=== PATIENT | male | born 1960 | race Caucasian/White ===

== ENCOUNTER 2018-04-20 10:01 | Day surgery (SDC) | payer BC ==
[~2018-04-20] VITALS: Ht 170.2 cm; Wt 100.2 kg
[2018-04-20 10:20] VITALS: Ht 170.2 cm; Wt 100.2 kg
[2018-04-20 11:24] VITALS: BP 131/80; PULSE 56; RESP 16
[2018-04-20 12:42] VITALS: BP 131/79; PULSE 53; RESP 18
[2018-04-20] MEDS ORDERED: MIDAZOLAM 1 MG/ML 2 ML INJ ONE ×2 (12:44)
[2018-04-20] MEDS ORDERED: FENTAnyl 50 MCG/ML VIAL ONE (12:44)
== END 2018-04-20 15:09 | disposition home or self-care (01) ==
LOC: GIL 10:01
PROVIDERS: ATTEND Internal Medicine Gastroenterology
DX: Z12.11 Encounter for screening for malignant neoplasm of colon (principal); D12.5 Benign neoplasm of sigmoid colon; K64.8 Other hemorrhoids
CPT/HCPCS: 45380; 88305; J2250; J3010; Z7610

== ENCOUNTER 2018-08-22 06:28 | Inpatient (IN) | payer BC ==
[2018-08-19 14:01] VITALS: BMI 34.5
[2018-08-22] VITALS (11 sets, daily range): BP systolic 113–179; BP diastolic 78–103; PULSE 58–74; RESP 16–25; Ht 170.2 cm; Wt 99.7 kg
[~2018-08-22] VITALS: Ht 170.2 cm; Wt 99.7 kg
[2018-08-22] MEDS ORDERED: SOD CHLORIDE 0.9% 1,000 ML IV SCH (07:00)
[2018-08-22] MEDS ORDERED: CEFAZOLIN 2 GM/50 ML (PMX) 50 ML IVPB ONE (07:00)
--- NOTE | 2018-08-22 09:16 | PREAC ---
Date/Time of Note Date/Time of Note DATE: 08/22/18 TIME: 09:15 Anesthesia Eval and Record Evaluation Time Pre-Procedure Interview DATE: 08/22/18 TIME: 09:15 Age 58 Sex male NPO: 8 hrs Preoperative diagnosis abdominal wall defect Planned procedure abdominal open component separation, ventral hernia repair Past Medical History Past Medical History: Includes GI: Obesity Surgery & Anesthesia Issues No known issue Meds Anticoagulation: No Beta Jimmy within 24 hr: No Reason Beta Jimmy not given: Pt. not on B-Jimmy Discontinued Reported Medications [None] No Conflict Check 04/20/18 Current Medications Sodium Chloride 1,000 ml @ 75 mls/hr [id number] IV Last administered on 08/22/18at 07:50; Admin Dose 75 MLS/HR; Start 08/22/18 at 07:00 Meds reviewed: Yes Allergies Coded Allergies: No Known Allergy (Unverified , 08/22/18) Allergies Reviewed: Yes Labs/Studies Labs Reviewed: Reviewed by anesthesiologist test: N/A Studies: ECG, CXR Pre-procedure Exam Last vitals Vital Signs Date Temp Pulse Resp B/P (MAP) Pulse Ox O2 O2 Flow FiO2 Time Delivery Rate 08/22/18 97.1 62 16 113/81 97 Room Air 07:24 (92) Airway: Adequate mouth opening, Adequate thyromental dist Mallampati: Mallampati II Teeth: Normal Lung: Normal Heart: Normal ASA Physical Status ASA physical status: 1 Emergency: None Planned Anesthetic General/MAC: ETT Planned Pain Management Parenteral pain med Pre-operative Attestations Prior to commencing anesthesia and surgery, the patient was re-evaluated, there was verification of: *The patient's identity *The results of appropriate recent lab work and preoperative vital signs *The above evaluation not changing prior to induction *Anesthetic plan, risk benefits, alternative and complications discussed with patient/family; questions answered; patient/family understands, accepts and wishes to proceed. RUBY CALI Aug 22, 2018 09:16
[2018-08-22] MEDS ORDERED: BUPIVACAINE 0.25% (MPF) 30 ML INJ ONE (09:24)
[2018-08-22] MEDS ORDERED: POLYMYXIN/BACITRACIN 1L IRRIG ONE (09:25)
[2018-08-22] MEDS ORDERED: LIDOCAINE 2% (SDV) 5 ML INJ ONE (09:36)
[2018-08-22] MEDS ORDERED: PROPOFOL 20 ML ONE (09:36)
[2018-08-22] MEDS ORDERED: ROCURONIUM 50 MG INJ ONE (09:36)
[2018-08-22] MEDS ORDERED: DEXAMETHASONE 4 MG/ML 5 ML INJ ONE (10:42)
[2018-08-22] MEDS ORDERED: ONDANSETRON 4 MG INJ ONE (10:42)
[2018-08-22] MEDS ORDERED: SUGAMMADEX SODIUM 200 MG/2 ML VIAL IV ONE (11:00)
[2018-08-22] MEDS ORDERED: HYDROmorphONE 1 MG/5 ML IV SYRINGE IV ONE (11:13)
--- NOTE | 2018-08-22 11:13 | PAC ---
Date/Time of Note Date/Time of Note DATE: 08/22/18 TIME: 11:12 Post-Anesthesia Notes Post-Anesthesia Note Last documented vital signs Vital Signs Date Temp Pulse Resp B/P (MAP) Pulse Ox O2 O2 Flow FiO2 Time Delivery Rate 08/22/18 97.1 62 16 113/81 97 Room Air 1113 (92) Activity: WNL Respiratory function: WNL Cardiovascular function: WNL Mental status: Baseline Pain reasonably controlled: Yes Hydration appropriate: Yes Nausea/Vomiting absent: Yes RUBY CALI Aug 22, 2018 11:13
[2018-08-22] MEDS: HYDROmorphONE 1 MG/5 ML IV SYRINGE IV PRN ×4 (11:21→11:44)
--- NOTE | 2018-08-22 11:22 | OPR ---
Date/Time of Note Date/Time of Note DATE: 08/22/18 TIME: 11:14 Operative Report Procedure Date: Aug 22, 2018 Preoperative Diagnosis abdominal wall defect and abdominal incarcerated hernia and umbilical incarcerated hernia Postoperative Diagnosis same Operation/Procedure Performed 1. right rectus musculofascial flap cpt code 60217 2. left rectus musculofascial flap cpt code 14962 3. open incarcerated ventral hernia repair 4. open umbilical hernia repair 5. implantation of 15 x 15 cm bard soft mesh 6. open lysis of adhesions 7. reimplantation and repair of umbilicus 8. localized adjacent tissue transfer with the use of skin flaps 76 sq cm defect of the abdominal wall 9. therapeutic injection of subcutaneous local anesthesia Surgeon see signature line Electrical Tryout Person none Anesthesia Type: general Estimated Blood Loss: 10 - 50 ml's Transfusion none Specimen none Grafts/Implants none Complications none Pt Condition Post Procedure: stable Indications This is a 58-year-old male with a complicated abdominal wall defect and a incarcerated ventral hernia and an umbilical incarcerated hernia. He requires surgical repair of all of these issues. Risks alternatives benefits and pers onal were discussed the patient. Dental complications including but not limited to bleeding infection mesh infection mesh migration mesh erosion need for additional surgeries recurrence of hernia were discussed the patient. Patient expressed understanding and consents to the operation. Procedure Description Patient taken to the OR and prepped and draped in usual sterile fashion. Surgical time was performed. IV antibiotics given. Generous midline incision was made from the subxiphoid region all the way down to the periumbilical and infraumbilical region. Dissection with cautery was carried onto the decussat ion's of the rectus fascia. This incision was extended superiorly inferiorly along the same incision. The left rectus muscular fascial flap was then developed. In addition the left skin flap was raised using cautery to allow good medialization of the rectus flap. Attention was then paid to the right rectus muscular fascial flap. The flap was raised in the right skin flap was r aised. This allowed medialization of the right rectus muscle. The left retrorectus potential space was then developed and entered by initially making a small incision with cautery. This incision extended superiorly along the left rectus muscle at the border of the anterior and posterior rectus sheath. This incision was also extended inferiorly. This allowed the development of the potential space. The right rectus retrorectus potential space was then developed by making the same incision with cautery the anterior rectus sheath from the posterior rectus sheath and this incision was extended superiorly inferiorly. Open lysis of adhesions was performed and 2 hernias were encountered one was in the mid epigastric region. Lysis of adhesions was performed in this hernia was then manually reduced. Another hernia was encountered in the umbilicus and lysis of adhesions was performed and this hernia was manually reduced. These 2 defects were then closed primarily by closing the posterior rectus sheath in a primary fashion with a running #1 loop PDS from superior to inferior and inferior superior tied in the middle. A 15 x 15 cm Bard soft mesh was then placed in the retrorectus space with multiple interrupted #1 Prolene's. The anterior rectus sheath was then closed primarily with running #1 loop PDS superior inferior and inferior superior tied in the middle. The umbilicus was then repaired reimplanted by reapproximating the base of the umbilicus to the anterior rectus sheath with interrupted 3-0 Vicryl. Due to the large tissue defect localized adjacent to his transfer with use of skin flaps was performed. Multilayer closed with interrupted 3-0 Vicryl and skin kathi. Therapeutic subcutaneous local anesthesia was injected at the incision site. Dry dressings were applied. Sharifa BARBA Aug 22, 2018 11:22
[2018-08-22] MEDS ORDERED: LABETALOL HCL 20MG INJ IV PRN (11:30)
[2018-08-22] MEDS ORDERED: ALBUTEROL 0.083% (NEB) 2.5 MG/3 ML AMP HHN PRN (11:30)
[2018-08-22] MEDS ORDERED: OXYCODONE/ACETAMINOPHEN (5/325) TAB PO PRN ×2 (11:30)
[2018-08-22] MEDS ORDERED: FENTAnyl 50 MCG/ML VIAL IV PRN ×2 (11:30)
[2018-08-22] MEDS ORDERED: MIDAZOLAM 1 MG/ML 2 ML INJ IV PRN (11:30)
[2018-08-22] MEDS ORDERED: DIPHENHYDRAMINE 50 MG INJ IV PRN (11:30)
[2018-08-22] MEDS ORDERED: ONDANSETRON 4 MG INJ IV PRN (11:30)
[2018-08-22] MEDS ORDERED: hydrALAzine 20 MG INJ IV PRN (11:30)
[2018-08-22] MEDS ORDERED: METOCLOPRAMIDE 10 MG INJ IV PRN (11:30)
[2018-08-22] MEDS ORDERED: HYDROmorphONE 1 MG/5 ML IV SYRINGE IV PRN (11:30)
[2018-08-22] MEDS ORDERED: EPHEDrine 25 MG/5 ML SYG IV PRN (11:30)
[2018-08-22] MEDS ORDERED: MEPERIDINE 25 MG INJ IV PRN (11:30)
[2018-08-22] MEDS ORDERED: KETOROLAC 30 MG INJ IV PRN (11:30)
[2018-08-22] MEDS: SOD CHLORIDE 0.9% 1,000 ML IV SCH ×2 (11:48→14:34)
[2018-08-22] MEDS: FENTAnyl 50 MCG/ML VIAL IV PRN ×3 (11:51→12:07)
[2018-08-22] MEDS: CEFAZOLIN 2 GM/50 ML (PMX) 50 ML IVPB SCH ×2 (12:28→19:56)
[2018-08-22] MEDS ORDERED: HYDROCODONE/APAP (5/325) TAB PO ONE (12:30)
[2018-08-22] MEDS ORDERED: HYDROmorphONE 0.2 MG/ML PCA IV SCH ×2 (13:00→21:30)
[2018-08-22] MEDS ORDERED: NALOXONE (0.4 MG/ML) INJ IV PRN (13:00)
--- NOTE | 2018-08-22 18:17 | HP ---
Date/Time of Note Date/Time of Note DATE: 08/22/18 TIME: 18:16 Assessment/Plan VTE Prophylaxis Risk score (from Nsg)>0 risk: 2 SCD applied (from Ns): Yes Pharmacological prophylaxis: NA/contraindicated Pharm contraindication: surgical contra Lines/Catheters IV Catheter Type (from Nrsg): Peripheral IV Assessment/Plan Assessment/Plan - Abdominal wall defect and abdominal incarcerated hernia and umbilical incarcerated hernia. S/p open incarcerated ventral hernia repair and open umbili bill hernia repair with Dr. Sampson. Continue IV fluids and postoperative antibiotic. Continue Dilaudid MASK FORMER PRN for pain and Zofran as needed for nausea. Advance diet per general surgery recommendations. Further recommendations based on clinical course. Plan of care discussed with Dr. Lynn. Result Diagram: 08/22/18 1135 08/22/18 1135 Results 24hrs Laboratory Tests Test 08/22/18 11:35 White Blood Count 8.1 Red Blood Count 6.01 Hemoglobin 17.6 Hematocrit 51.5 Mean Corpuscular Volume 85.7 Mean Corpuscular Hemoglobin 29.3 Mean Corpuscular Hemoglobin Concent 34.2 Red Cell Distribution Width 13.5 Platelet Count 182 Mean Platelet Volume 10.7 H Immature Granulocytes % 0.600 H Neutrophils % 73.7 Lymphocytes % 18.7 Monocytes % 4.8 Eosinophils % 1.7 Basophils % 0.5 Nucleated Red Blood Cells % 0.0 Immature Granulocytes # 0.050 H Neutrophils # 6.0 Lymphocytes # 1.5 Monocytes # 0.4 Eosinophils # 0.1 Basophils # 0.0 Nucleated Red Blood Cells # 0.0 Sodium Level 140 Potassium Level 4.3 Chloride Level 108 Carbon Dioxide Level 25 Anion Gap 7 Blood Urea Nitrogen 10 Creatinine 0.87 Est Glomerular Filtrat Rate mL/min > 60 Glucose Level 141 Calcium Level 8.3 L Total Bilirubin 1.3 Direct Bilirubin 0.00 Indirect Bilirubin 1.3 H Aspartate Amino Transf (AST/SGOT) 31 Alanine Aminotransferase (ALT/SGPT) 40 Alkaline Phosphatase 92 Total Protein 7.2 Albumin 4.0 Globulin 3.20 Albumin/Globulin Ratio 1.25 HPI/ROS Admit Date/Time Admit Date/Time Aug 22, 2018 at 11:27 Hx of Present Illness The patient is a 58-year-old gentleman who denies having any chronic conditions. Patient has complicated abdominal wall defect and incarcerated ventral hernia and umbilical incarcerated hernia. Patient was evaluated by Dr. Sampson in general surgery consultation. Patient was brought to the hospital and underwent a bowel incarcerated ventral and umbilical hernia repair with mesh. Postoperatively patient experiencing significant pain and patient was started on MASK FORMER Dilaudid as needed for pain and admitted for further evaluation and management to medical surgical floor. ROS 12 point review of system is negative except for what mentioned in HPI PMH/Family/Social Past Medical History Medications Current Medications Cefazolin Sodium/ Dextrose 50 ml @ 100 mls/hr Q8H IVPB Last administered on 08/22/18at 12:28; Admin Dose 100 MLS/HR; Start 08/22/18 at 11:30; Stop 08/23/18 at 11:29 Sodium Chloride 1,000 ml @ 100 mls/hr Q10H IV Last administered on 08/22/18at 14:34; Admin Dose 100 MLS/HR; Start 08/22/18 at 11:12 Naloxone HCl (Narcan) 0.2 mg Q2M PRN IV RR 8 BREATHS/MIN OR LESS; Start 08/22/18 at 13:00 Hydromorphone HCl (Dilaudid MASK FORMER) Q4PCA IV Last administered on 08/22/18at 14:35; Admin Dose 6 MG; Start 08/22/18 at 13:00 Coded Allergies: No Known Allergy (Unverified , 08/22/18) Past Surgical History Past Surgical Hx: no surgical history Family History Significant Family History: no pertinent family hx Social History Alcohol Use: none Smoking Status: Former smoker (Quit more than 20 years ago) Drug Use: none Exam/Review of Systems Vital Signs Vitals Vital Signs Date Temp Pulse Resp B/P (MAP) Pulse Ox O2 O2 Flow FiO2 Time Delivery Rate 08/22/18 18 17:00 08/22/18 97.6 74 161/89 93 Nasal 14:00 (113) Cannula Exam Constitutional: alert, oriented Head: normocephalic Respiratory: clear to auscultation Cardiovascular: nl pulses Gastrointestinal: soft, other (Status post surgery with dry clean intact surgical dressing) Musculoskeletal: nl extremities to inspection Extremities: normal pulses Neurological: nl mental status JOSE VILLANUEVA Aug 22, 2018 18:16
[2018-08-22] MEDS: ONDANSETRON 4 MG INJ IV PRN (22:20)
[2018-08-23] VITALS (8 sets, daily range): BP systolic 122–158; BP diastolic 70–96; PULSE 60–94; RESP 16–18
[2018-08-23] MEDS: SOD CHLORIDE 0.9% 1,000 ML IV SCH ×2 (01:57→13:15)
[2018-08-23] MEDS: CEFAZOLIN 2 GM/50 ML (PMX) 50 ML IVPB SCH ×2 (03:25→11:42)
[2018-08-23] MEDS: ONDANSETRON 4 MG INJ IV PRN (05:13)
--- NOTE | 2018-08-23 09:58 | PN ---
Date/Time of Note Date/Time of Note DATE: 08/23/18 TIME: 09:58 Assessment/Plan VTE Prophylaxis Risk score (from Ns)>0 risk: 5 SCD applied (from Ns): Yes Pharmacological prophylaxis: other Lines/Catheters IV [facility] Type (from [facility]): Peripheral IV Assessment/Plan Assessment/Plan s/p component sep with mesh pt doing well dc home Result Diagram: 08/23/18 0626 08/23/18 0626 Results 24hrs Laboratory Tests Test 08/22/18 11:35 08/23/18 06:26 White Blood Count 8.1 12.8 #H Red Blood Count 6.01 5.65 Hemoglobin 17.6 16.8 Hematocrit 51.5 49.3 Mean Corpuscular Volume 85.7 87.3 Mean Corpuscular Hemoglobin 29.3 29.7 Mean Corpuscular Hemoglobin Concent 34.2 34.1 Red Cell Distribution Width 13.5 13.6 Platelet Count 182 195 Mean Platelet Volume 10.7 H 11.2 H Immature Granulocytes % 0.600 H 0.500 H Neutrophils % 73.7 85.0 H Lymphocytes % 18.7 6.0 L Monocytes % 4.8 8.3 Eosinophils % 1.7 0.0 Basophils % 0.5 0.2 Nucleated Red Blood Cells % 0.0 0.0 Immature Granulocytes # 0.050 H 0.060 H Neutrophils # 6.0 10.9 H Lymphocytes # 1.5 0.8 Monocytes # 0.4 1.1 H Eosinophils # 0.1 0.0 Basophils # 0.0 0.0 Nucleated Red Blood Cells # 0.0 0.0 Sodium Level 140 141 Potassium Level 4.3 4.1 Chloride Level 108 107 Carbon Dioxide Level 25 24 Anion Gap 7 10 Blood Urea Nitrogen 10 12 Creatinine 0.87 0.71 Est Glomerular Filtrat Rate mL/min > 60 > 60 Glucose Level 141 131 Calcium Level 8.3 L 8.2 L Total Bilirubin 1.3 1.6 H Direct Bilirubin 0.00 0.00 Indirect Bilirubin 1.3 H 1.6 H Aspartate Amino Transf (AST/SGOT) 31 25 Alanine Aminotransferase (ALT/SGPT) 40 32 Alkaline Phosphatase 92 74 Total Protein 7.2 7.1 Albumin 4.0 3.8 Globulin 3.20 3.30 H Albumin/Globulin Ratio 1.25 1.15 Subjective 24 Hr Interval Summary Free Text/Dictation patient doing well pain under control Exam/Review of Systems Exam Vitals Vital Signs Date Temp Pulse Resp B/P (MAP) Pulse Ox O2 O2 Flow FiO2 Time Delivery Rate 08/23/18 Nasal 2.0 09:38 Cannula 08/23/18 17 09:00 08/23/18 97.9 147/83 94 09:00 (104) 08/23/18 60 07:38 Intake and Output 08/22/18 08/22/18 08/23/18 1515:00 23:00 07:00 IntakeIntake Total 1950 ml 540 ml 2100 ml OutputOutput Total 20 ml 700 ml 400 ml BalanceBalance 1930 ml -160 ml 1700 ml Exam c/d/i Results Results 24hrs Laboratory Tests Test 08/22/18 11:35 08/23/18 06:26 White Blood Count 8.1 12.8 #H Red Blood Count 6.01 5.65 Hemoglobin 17.6 16.8 Hematocrit 51.5 49.3 Mean Corpuscular Volume 85.7 87.3 Mean Corpuscular Hemoglobin 29.3 29.7 Mean Corpuscular Hemoglobin Concent 34.2 34.1 Red Cell Distribution Width 13.5 13.6 Platelet Count 182 195 Mean Platelet Volume 10.7 H 11.2 H Immature Granulocytes % 0.600 H 0.500 H Neutrophils % 73.7 85.0 H Lymphocytes % 18.7 6.0 L Monocytes % 4.8 8.3 Eosinophils % 1.7 0.0 Basophils % 0.5 0.2 Nucleated Red Blood Cells % 0.0 0.0 Immature Granulocytes # 0.050 H 0.060 H Neutrophils # 6.0 10.9 H Lymphocytes # 1.5 0.8 Monocytes # 0.4 1.1 H Eosinophils # 0.1 0.0 Basophils # 0.0 0.0 Nucleated Red Blood Cells # 0.0 0.0 Sodium Level 140 141 Potassium Level 4.3 4.1 Chloride Level 108 107 Carbon Dioxide Level 25 24 Anion Gap 7 10 Blood Urea Nitrogen 10 12 Creatinine 0.87 0.71 Est Glomerular Filtrat Rate mL/min > 60 > 60 Glucose Level 141 131 Calcium Level 8.3 L 8.2 L Total Bilirubin 1.3 1.6 H Direct Bilirubin 0.00 0.00 Indirect Bilirubin 1.3 H 1.6 H Aspartate Amino Transf (AST/SGOT) 31 25 Alanine Aminotransferase (ALT/SGPT) 40 32 Alkaline Phosphatase 92 74 Total Protein 7.2 7.1 Albumin 4.0 3.8 Globulin 3.20 3.30 H Albumin/Globulin Ratio 1.25 1.15 Medications Medication Current Medications Cefazolin Sodium/ Dextrose 50 ml @ 100 mls/hr Q8H IVPB Last administered on 08/23/18at 03:25; Admin Dose 100 MLS/HR; Start 08/22/18 at 11:30; Stop 08/23/18 at 11:29 Sodium Chloride 1,000 ml @ 100 mls/hr Q10H IV Last administered on 08/23/18at 01:57; Admin Dose 100 MLS/HR; Start 08/22/18 at 11:12 Naloxone HCl (Narcan) 0.2 mg Q2M PRN IV RR 8 BREATHS/MIN OR LESS; Start 08/22/18 at 13:00 Hydromorphone HCl (Dilaudid FITNESS TEACHER) Q4PCA IV Last administered on 08/23/18at 05:09; Admin Dose 6 MG; Start 08/22/18 at 21:30 Ondansetron HCl (Zofran Inj) 4 mg Q4H PRN IV NAUSEA AND/OR VOMITING Last administered on 08/23/18at 05:13; Admin Dose 4 MG; Start 08/22/18 at 21:30 Sharifa BARBA Aug 23, 2018 09:58
[2018-08-23] MEDS: HYDROCODONE/APAP (5/325) TAB PO PRN ×2 (16:56→21:47)
[2018-08-23] MEDS ORDERED: HYDR-3601 PO (16:58)
[2018-08-23] MEDS: AMLODIPINE 10 MG TAB PO SCH (17:59)
[2018-08-23] MEDS ORDERED: hydrALAzine 20 MG INJ IV PRN (18:00)
[2018-08-23] MEDS ORDERED: IOHEXOL 100 ML ONE (18:49)
[2018-08-23] MEDS ORDERED: SOD CHLORIDE 0.9% 100 ML ONE (18:49)
--- NOTE | 2018-08-23 23:29 | PN ---
Date/Time of Note Date/Time of Note DATE: 08/23/18 TIME: pt is seen at 16:20. Assessment/Plan VTE Prophylaxis Risk score (from Nsg)>0 risk: 3 SCD applied (from Nsg): Yes Pharmacological prophylaxis: NA/contraindicated Pharm contraindication: surgical contra Lines/Catheters IV Catheter Type (from Nrsg): Peripheral IV Assessment/Plan Hospital Course EDGE BASTER Dilaudid d/[place] in AM, continue [place] for pain, encouraged IS, ambulation. Pt denies any N/V, had BM. D/c planning. Assessment/Plan - Abdominal wall defect and abdominal incarcerated hernia and umbilical incarcerated hernia. S/p open incarcerated ventral hernia repair and open umbilical hernia repair with Dr. Sampson. Continue IV fluids and postoperative antibiotic. Continue Dilaudid EDGE BASTER PRN for pain and Zofran as needed for nausea. Advance diet per general surgery recommendations. Further recommendations based on clinical course. Plan of care discussed with Dr. Lynn. Result Diagram: 08/23/1826 08/23/1826 Results 24hrs Laboratory Tests Test 08/23/18 06:26 White Blood Count 12.8 #H Red Blood Count 5.65 Hemoglobin 16.8 Hematocrit 49.3 Mean Corpuscular Volume 87.3 Mean Corpuscular Hemoglobin 29.7 Mean Corpuscular Hemoglobin Concent 34.1 Red Cell Distribution Width 13.6 Platelet Count 195 Mean Platelet Volume 11.2 H Immature Granulocytes % 0.500 H Neutrophils % 85.0 H Lymphocytes % 6.0 L Monocytes % 8.3 Eosinophils % 0.0 Basophils % 0.2 Nucleated Red Blood Cells % 0.0 Immature Granulocytes # 0.060 H Neutrophils # 10.9 H Lymphocytes # 0.8 Monocytes # 1.1 H Eosinophils # 0.0 Basophils # 0.0 Nucleated Red Blood Cells # 0.0 Sodium Level 141 Potassium Level 4.1 Chloride Level 107 Carbon Dioxide Level 24 Anion Gap 10 Blood Urea Nitrogen 12 Creatinine 0.71 Est Glomerular Filtrat Rate mL/min > 60 Glucose Level 131 Calcium Level 8.2 L Total Bilirubin 1.6 H Direct Bilirubin 0.00 Indirect Bilirubin 1.6 H Aspartate Amino Transf (AST/SGOT) 25 Alanine Aminotransferase (ALT/SGPT) 32 Alkaline Phosphatase 74 Total Protein 7.1 Albumin 3.8 Globulin 3.30 H Albumin/Globulin Ratio 1.15 Exam/Review of Systems Exam Vitals Vital Signs Date Temp Pulse Resp B/P (MAP) Pulse Ox O2 O2 Flow FiO2 Time Delivery Rate 08/23/18 96 2.0 23:15 08/23/18 Nasal 20:30 Cannula 08/23/18 98.4 94 18 158/96 20:10 (116) Intake and Output 08/22/18 08/22/18 08/23/18 1515:00 23:00 07:00 IntakeIntake Total 1950 ml 540 ml 2100 ml OutputOutput Total 20 ml 700 ml 400 ml BalanceBalance 1930 ml -160 ml 1700 ml Exam Constitutional: alert, oriented Head: normocephalic Respiratory: clear to auscultation Cardiovascular: nl pulses Gastrointestinal: soft, other (Status post surgery with dry clean intact surgical dressing) Musculoskeletal: nl extremities to inspection Extremities: normal pulses Neurological: nl mental status Results Results 24hrs Laboratory Tests Test 08/23/18 06:26 White Blood Count 12.8 #H Red Blood Count 5.65 Hemoglobin 16.8 Hematocrit 49.3 Mean Corpuscular Volume 87.3 Mean Corpuscular Hemoglobin 29.7 Mean Corpuscular Hemoglobin Concent 34.1 Red Cell Distribution Width 13.6 Platelet Count 195 Mean Platelet Volume 11.2 H Immature Granulocytes % 0.500 H Neutrophils % 85.0 H Lymphocytes % 6.0 L Monocytes % 8.3 Eosinophils % 0.0 Basophils % 0.2 Nucleated Red Blood Cells % 0.0 Immature Granulocytes # 0.060 H Neutrophils # 10.9 H Lymphocytes # 0.8 Monocytes # 1.1 H Eosinophils # 0.0 Basophils # 0.0 Nucleated Red Blood Cells # 0.0 Sodium Level 141 Potassium Level 4.1 Chloride Level 107 Carbon Dioxide Level 24 Anion Gap 10 Blood Urea Nitrogen 12 Creatinine 0.71 Est Glomerular Filtrat Rate mL/min > 60 Glucose Level 131 Calcium Level 8.2 L Total Bilirubin 1.6 H Direct Bilirubin 0.00 Indirect Bilirubin 1.6 H Aspartate Amino Transf (AST/SGOT) 25 Alanine Aminotransferase (ALT/SGPT) 32 Alkaline Phosphatase 74 Total Protein 7.1 Albumin 3.8 Globulin 3.30 H Albumin/Globulin Ratio 1.15 Medications Medication Current Medications Sodium Chloride 1,000 ml @ 100 mls/hr Q10H IV Last administered on 08/23/18at 13:15; Admin Dose 100 MLS/HR; Start 08/22/18 at 11:12 Naloxone HCl (Narcan) 0.2 mg Q2M PRN IV RR 8 BREATHS/MIN OR LESS; Start 08/22/18 at 13:00 Ondansetron HCl (Zofran Inj) 4 mg Q4H PRN IV NAUSEA AND/OR VOMITING Last administered on 08/23/18at 05:13; Admin Dose 4 MG; Start 08/22/18 at 21:30 Acetaminophen/ Hydrocodone Bitart ([place] (5/325)) 1 tab Q4H PRN PO MODERATE PAIN LEVEL 4-6 Last administered on 08/23/18at 21:47; Admin Dose 1 TAB; Start 08/23/18 at 16:30 Amlodipine Besylate (Norvasc) 10 mg DAILY PO Last administered on 08/23/18at 17:59; Admin Dose 10 MG; Start 08/23/18 at 18:00 Hydralazine HCl (Apresoline) 10 mg Q6H PRN IV ELEVATED BLOOD PRESSURE Last administered on 08/23/18at 17:59; Admin Dose 10 MG; Start 08/23/18 at 18:00 Albuterol/ Ipratropium (Duoneb) 3 ml Q6HWA RESP THERAPY HHN ; Start 08/23/18 at 22:30 JOSE VILLANUEVA Aug 23, 2018 23:29
[2018-08-23] MEDS: ALBUTEROL/IPRATROPIUM (NEB) 3 ML AMP HHN SCH (23:44)
[2018-08-24] MEDS: SOD CHLORIDE 0.9% 1,000 ML IV SCH (01:09)
[2018-08-24 02:32] VITALS: BP 130/82; PULSE 79; RESP 18
[2018-08-24] MEDS: HYDROCODONE/APAP (5/325) TAB PO PRN ×3 (04:13→15:37)
[2018-08-24 07:48] VITALS: BP 122/81; PULSE 84; RESP 18
[2018-08-24] MEDS: ALBUTEROL/IPRATROPIUM (NEB) 3 ML AMP HHN SCH ×2 (07:54→14:27)
[2018-08-24] MEDS: AMLODIPINE 10 MG TAB PO SCH (08:54)
--- NOTE | 2018-08-24 11:38 | PN ---
Date/Time of Note Date/Time of Note DATE: 08/24/18 TIME: 11:35 Assessment/Plan VTE [place]axis [place] [facility] [place]: 5 [place]CD [place] [facility] [place] Yes Pharmacological prophylaxis: NA/contraindicated Pharm contraindication: surgical contra Lines/Catheters IV [facility]ter Type (from [facility]): Peripheral IV Assessment/Plan Hospital Course Patient developed shortness of breath last night and desaturation, underwent CT angiogram which was negative for any thrombosis, CT chest revealed atelectasis. Patient denies any shortness of breath denies any chest pain. We will start chest physical therapy continue bronchodilators. If patient continues to improve with no shortness of breath and adequate saturation patient can be discharged home later in the afternoon. Assessment/Plan - Postoperative atelectasis, continue chest physiotherapy, bronchodilators, incentive spirometer and out of bed ambulation. - Abdominal wall defect and abdominal incarcerated hernia and umbilical incarcerated hernia. S/p open incarcerated ventral hernia repair and open umbilical hernia repair with Dr. Sampson. Continue IV fluids and postoperative antibiotic. Continue Dilaudid GASOLINE CATALYST OPERATOR PRN for pain and Zofran as needed for nausea. Advance diet per general surgery recommendations. - Obesity with BMI of 34 Further recommendations based on clinical course. Plan of care discussed with Dr. Lynn. Result Diagram: 08/23/1862508/23/18625 Exam/Review of Systems Exam Vitals Vital Signs Date Temp Pulse Resp B/P (MAP) Pulse Ox O2 O2 Flow FiO2 Time Delivery Rate 08/24/18 Nasal 2.0 08:54 Cannula 08/24/18 75 18 95 07:55 08/24/18 98.0 122/81 07:48 (95) Intake and Output 08/23/18 08/23/18 08/24/18 1515:00 23:00 07:00 IntakeIntake Total 1050 ml 400 ml 2100 ml OutputOutput Total 600 ml 750 ml 1000 ml BalanceBalance 450 ml -350 ml 1100 ml Exam Constitutional: alert, oriented Head: normocephalic Respiratory: clear to auscultation Cardiovascular: nl pulses Gastrointestinal: soft, other (Status post surgery with dry clean intact surgical dressing) Musculoskeletal: nl extremities to inspection Extremities: normal pulses Neurological: nl mental status Medications Medication Current Medications Naloxone HCl (Narcan) 0.2 mg Q2M PRN IV RR 8 BREATHS/MIN OR LESS; Start 08/22/18 at 13:00 Ondansetron HCl (Zofran Inj) 4 mg Q4H PRN IV NAUSEA AND/OR VOMITING Last administered on 08/23/18 05:13; Admin Dose 4 MG; Start 08/22/18 at 21:30 Acetaminophen/ Hydrocodone Bitart ([place] (5/325)) 1 tab Q4H PRN PO MODERATE PAIN LEVEL 4-6 Last administered on 08/24/18 08:54; Admin Dose 1 TAB; Start 08/23/18 at 16:30 Amlodipine Besylate (Norvasc) 10 mg DAILY PO Last administered on 08/24/18 08:54; Admin Dose 10 MG; Start 08/23/18 at 18:00 Hydralazine HCl (Apresoline) 10 mg Q6H PRN IV ELEVATED BLOOD PRESSURE Last administered on 08/23/18 17:59; Admin Dose 10 MG; Start 08/23/18 at 18:00 Albuterol/ Ipratropium (Duoneb) 3 ml Q6HWA RESP THERAPY HHN Last administered on 08/24/18 07:54; Admin Dose 3 ML; Start 08/23/18 at 22:30 Docusate Sodium (Colace) 100 mg BID PO ; Start 08/24/18 at 21:00 JOSE VILLANUEVA Aug 24, 2018 11:38
[2018-08-24] MEDS ORDERED: POLYETHYLENE GLYCOL 17 GM PACKET GTB SCH (12:00)
[2018-08-24 14:01] VITALS: BP 128/83; PULSE 93; RESP 16
[2018-08-24] MEDS ORDERED: DOCUSATE SODIUM 100 MG CAP PO SCH (21:00)
--- NOTE | 2018-08-28 21:08 | DS ---
Date/Time of Note Date/Time of Note DATE: 08/28/18 TIME: 21:06 Discharge Summary Admission/Discharge Info Admit Date/Time Aug 22, 2018 at 11:27 Discharge Date/Time Aug 24, 2018 at 19:10 Patient Condition: Stable Hx of Present Illness The patient is a 58-year-old gentleman who denies having any chronic conditions. Patient has complicated abdominal wall defect and incarcerated ventral hernia and umbilical incarcerated hernia. Patient was evaluated by Dr. Sampson in general surgery consultation. Patient was brought to the hospital and underwent a bowel incarcerated ventral and umbilical hernia repair with mesh. Postoperatively patient experiencing significant pain and patient was started on [employer] Dilaudid as needed for pain and admitted for further evaluation and management to medical surgical floor. Hospital Course - Postoperative atelectasis, continue chest physiotherapy, bronchodilators, incentive spirometer, ambulation. - Abdominal wall defect and abdominal incarcerated hernia and umbilical incarcerated hernia. S/p open incarcerated ventral hernia repair and open umbilical hernia repair with Dr. Sampson. S/p postoperative antibiotic. Continue [place] PRN for pain and Zofran as needed for nausea. Pt tolerates regular diet well. - Obesity with BMI of 34.4. Plan of care discussed with Dr. Lynn. Home Meds Active Scripts Hydrocodone Bit-Acetaminophen (Hydrocodone Bit-APAP) 5-325MG Tablet, 1 TAB PO Q4H PRN for MODERATE PAIN LEVEL 4-6, #30 TAB Prov:JOSE VILLANUEVA 08/23/18 Discontinued Reported Medications [None] No Conflict Check 04/20/18 Follow-up Plan F/up with Dr Sampson in 1-2 weeks. Primary Care Provider Kulwinder Hernandez MD Time spent on discharge: > 30 minutes JOSE VILLANUEVA Aug 28, 2018 21:08
== END 2018-08-24 19:10 | disposition home or self-care (01) | DRG 354 ==
LOC: SDS 06:28 → PP2 11:27 → SDS 11:27 → PP2 13:12
PROVIDERS: ADMIT Surgery; ATTEND Surgery
PROC: 0KXL0ZZ Transfer Left Abdomen Muscle, Open Approach (ICD-10-PCS; 2018-08-22)
PROC: 0KXK0ZZ Transfer Right Abdomen Muscle, Open Approach (ICD-10-PCS; 2018-08-22)
PROC: 0WUF0JZ Supplement Abdominal Wall with Synthetic Substitute, Open Approach (ICD-10-PCS; principal; 2018-08-22 09:00)
DX: K42.0 Umbilical hernia with obstruction, without gangrene (principal); J98.11 Atelectasis; K43.6 Other and unspecified ventral hernia with obstruction, without gangrene; E66.9 Obesity, unspecified; Z68.34 Body mass index [BMI] 34.0-34.9, adult
CPT/HCPCS: 71045; 71250; 71275; 80053; 85025; 94640; 94664; J0360; J0690; J1100; J1170; J2405; J3010; J7030; Q9967